=== PATIENT | female | born 1975 | race Caucasian/White ===

== ENCOUNTER 2017-06-14 14:41 | Emergency (ER) | payer BC ==
[2017-06-14] MEDS: morphine 2 MG INJ IV (19:40)
[2017-06-14] MEDS: ONDANSETRON 4 MG INJ IV (19:40)
[2017-06-14 19:51] LABS: URINE BLOOD (Dip) POC 1+ (NEGATIVE); URINE GLUCOSE (Dip) POC Negative (NEGATIVE); URINE KETONES (Dip) POC Negative (NEGATIVE); URINE LEUKOCYTE EST (Dip) POC Negative (NEGATIVE); URINE NITRITE (Dip) POC Negative (NEGATIVE); URINE TOTAL PROTEIN POC Negative (NEGATIVE)
[2017-06-14 19:51] LABS: URINE PH (Dip) POC 5.5 (5.0-8.5)
== END 2017-06-14 21:06 | disposition home or self-care (01) ==
LOC: FTE 14:41
DX: M25.562 Pain in left knee (principal); M25.561 Pain in right knee; M25.572 Pain in left ankle and joints of left foot; M25.571 Pain in right ankle and joints of right foot; M25.531 Pain in right wrist; M25.532 Pain in left wrist; R11.10 Vomiting, unspecified; F17.210 Nicotine dependence, cigarettes, uncomplicated
CPT/HCPCS: 71045; 81003; 81025; 93970; 96374; 96375; 99285-25